=== PATIENT | male | born 1955 | race Caucasian/White ===

== ENCOUNTER 2020-12-20 14:42 | Outpatient (CLI) | payer MEDICARE ==
[2020-12-20 15:50] LABS: #Eosinphils 0.4 10x3/uL (0.0-0.5); #Monocytes 0.4 10x3/uL (0.0-1.1); %Eosinophils 8.9 % (0.0-6.0); %Lymphocytes 17.3 % (18.0-47.0); %Monocytes 9.4 % (0.0-10.0); Hemoglobin 12.5 g/dL (13.5-17.5); Mean Corpuscular HGB CONC 33.7 g/dL (32.0-36.0); Mean Corpuscular Hemoglobin 30.3 pg (27.0-33.0); Mean Platelet Volume 10.9 fl (7.4-10.4); Platelet Count 204 10x3/uL (150-450); RBC Distribution Width 12.6 % (11.5-14.5); Red Blood Cell (RBC) Count 4.12 10x6/uL (4.32-5.72); White Blood Cell (WBC) Count 4.2 10x3/uL (3.5-10.5)
[2020-12-20 15:53] LABS: #Neutrophils 2.6 10x3/uL (1.5-8.4); %Neutrophils 63.4 % (40.0-75.0)
[2020-12-21 02:14] LABS: SARS-CoV-2 PCR by NAA Not Detected (NotDetected)
== END 2020-12-20 14:43 | disposition home or self-care (01) ==
LOC: LABBT 14:42
PROVIDERS: ATTEND Orthopaedic Surgery Hand Surgery
DX: Z01.812 Encounter for preprocedural laboratory examination (principal); M72.0 Palmar fascial fibromatosis [Dupuytren]; Z20.822 Contact with and (suspected) exposure to COVID-19
CPT/HCPCS: 85025; U0003; U0005; 87635

== ENCOUNTER 2020-12-24 10:54 | Day surgery (SDC) | payer MEDICARE ==
[2020-12-21 10:09] VITALS: BMI 19.5
[2020-12-24] MEDS ORDERED: Collagenase Clostridium Hist. 0.9 MG VIAL IJ SCH (13:15)
[2020-12-24] MEDS ORDERED: Fentanyl 100 MCG/2 ML VIAL ONE (13:47)
[2020-12-24] MEDS ORDERED: Lidocaine 1% PF 5 ML VIAL ONE (14:10)
[2020-12-24] MEDS ORDERED: diphenhydrAMINE 50 MG/ML VIAL ONE (14:10)
[2020-12-24] MEDS ORDERED: PROPOFOL 200 MG/20 ML VIAL ONE (14:10)
[2020-12-24] MEDS ORDERED: Ondansetron PF 4 MG/2 ML Vial ONE (14:10)
[2020-12-24] MEDS ORDERED: Dexamethasone 20 MG/5 ML VIAL ONE (14:10)
[2020-12-24] MEDS ORDERED: ePHEDrine Sulfate 50 MG/10 ML VIAL ONE (14:10)
[2020-12-24] MEDS ORDERED: Ketorolac Tromethamine 30 MG/ML VIAL ONE (15:52)
== END 2020-12-24 16:08 | disposition home or self-care (01) ==
LOC: SDC 10:54
PROVIDERS: ATTEND Orthopaedic Surgery Hand Surgery
PROC: 3E013TZ Introduction of Destructive Agent into Subcutaneous Tissue, Percutaneous Approach (ICD-10-PCS; principal; 2020-12-24)
DX: M72.0 Palmar fascial fibromatosis [Dupuytren] (principal); K59.00 Constipation, unspecified; Z79.82 Long term (current) use of aspirin; Z79.899 Other long term (current) drug therapy; Z88.5 Allergy status to narcotic agent
CPT/HCPCS: 20527; J0775; J0690; J1100; J1200; J1885; J2405; J2704; J3010

== ENCOUNTER 2021-01-31 08:25 | Outpatient (CLI) | payer MEDICARE | END 2021-01-31 08:26 | disposition home or self-care (01) | LOC: CT 08:25 | PROVIDERS: ATTEND Urology | DX: N28.89 Other specified disorders of kidney and ureter (principal); N28.1 Cyst of kidney, acquired | CPT/HCPCS: 71260; 74170; 78306; 82565; A9503 ==

== ENCOUNTER 2021-04-23 08:29 | Outpatient (CLI) | payer MEDICARE ==
[2021-04-23] MEDS ORDERED: Iopamidol 370 76% 100 ML VIAL ONE (13:23)
== END 2021-04-23 08:30 | disposition home or self-care (01) ==
LOC: CT 08:29
PROVIDERS: ATTEND Urology
DX: C64.1 Malignant neoplasm of right kidney, except renal pelvis (principal); R06.02 Shortness of breath; R53.1 Weakness; R91.8 Other nonspecific abnormal finding of lung field; N28.1 Cyst of kidney, acquired; N28.89 Other specified disorders of kidney and ureter; K59.00 Constipation, unspecified; K83.9 Disease of biliary tract, unspecified; Z98.890 Other specified postprocedural states
CPT/HCPCS: 36415; 71260; 74178; 80053; 85025; Q9967

== ENCOUNTER 2021-05-08 07:30 | Outpatient (CLI) | payer MEDICARE ==
[2021-05-08] MEDS ORDERED: Magnevist 469MG/ML 20 ML VIAL ONE (09:32)
== END 2021-05-08 07:31 | disposition home or self-care (01) ==
LOC: BICMRI 07:30
PROVIDERS: ATTEND Physician Assistant Medical
DX: K83.8 Other specified diseases of biliary tract (principal); R85.89 Other abnormal findings in specimens from digestive organs and abdominal cavity; R63.0 Anorexia; R19.7 Diarrhea, unspecified; N28.9 Disorder of kidney and ureter, unspecified
CPT/HCPCS: 74183; A9579

== ENCOUNTER 2021-06-26 10:43 | Outpatient (CLI) | payer MEDICARE ==
[2021-06-26 11:23] LABS: #Basophils 0.1 10x3/uL (0.0-0.2); #Eosinphils 0.4 10x3/uL (0.0-0.5); #Monocytes 0.6 10x3/uL (0.0-1.1); #Neutrophils 2.8 10x3/uL (1.5-8.4); %Lymphocytes 24.3 % (18.0-47.0); %Monocytes 11.4 % (0.0-10.0); %Neutrophils 55.9 % (40.0-75.0); Hemoglobin 13.1 g/dL (13.5-17.5); Mean Corpuscular HGB CONC 33.6 g/dL (32.0-36.0); Mean Corpuscular Hemoglobin 29.7 pg (27.0-33.0); Mean Corpuscular Volume 88.4 fl (81.2-95.1); Platelet Count 218 10x3/uL (150-450); RBC Distribution Width 13.4 % (11.5-14.5); Red Blood Cell (RBC) Count 4.41 10x6/uL (4.32-5.72)
[2021-06-26 11:47] LABS: ALT (SGPT) 14 U/L (8-55); AST (SGOT) 16 U/L (5-34); Albumin 4.3 g/dL (3.4-4.8); Alkaline Phosphatase 112 U/L (40-110); Anion Gap 14 mmol/L (10-20); BUN (Urea Nitrogen) 13 mg/dL (8.4-25.7); Bilirubin, Total 0.8 mg/dL (0.2-1.2); Calc. Creatinine Clearance 0 mL/min (70-130); Calcium 9.8 mg/dL (7.8-10.44); Carbon Dioxide 24 mmol/L (23-31); Chloride 108 mmol/L (98-107); Globulin 2.2 g/dL (2.4-3.5); Glucose 109 mg/dL (80-115); Protein, Total 6.5 g/dL (5.8-8.1); Sodium 142 mmol/L (136-145)
[2021-06-26 14:20] LABS: Hemoglobin A1c 4.8 % (4.0-6.0)
[2021-06-26 23:48] LABS: SARS-CoV-2 PCR by NAA Not Detected (NotDetected)
== END 2021-06-26 10:44 | disposition home or self-care (01) ==
LOC: LABBT 10:43
PROVIDERS: ATTEND Surgery
DX: Z01.818 Encounter for other preprocedural examination (principal); D12.8 Benign neoplasm of rectum; Z20.822 Contact with and (suspected) exposure to COVID-19
CPT/HCPCS: 80053; 82378; 83036; 85025; U0003; U0005; 93005; 93010

== ENCOUNTER 2021-06-26 10:45 | Inpatient (IN) | payer MEDICARE ==
[2021-07-01] MEDS ORDERED: Scopolamine 1.5 mg/72 hour Patch ONE (10:11)
[2021-07-01] MEDS ORDERED: Midazolam HCl 2 mg/2 ml Vial ONE (10:11)
[2021-07-01] MEDS ORDERED: cefOXitin Sodium/Dextrose 2 GM/50 ML BAG ONE (10:16)
[2021-07-01] MEDS ORDERED: HYDROmorphone 2 MG/ML VIAL ONE (11:27)
[2021-07-01] MEDS ORDERED: Fentanyl 100 MCG/2 ML VIAL ONE ×3 (11:27→14:21)
[2021-07-01] MEDS ORDERED: Promethazine HCl 25 MG/ML VIAL ONE (11:28)
[2021-07-01] MEDS ORDERED: SUGAMMADEX SODIUM 200 MG/2 ML VIAL ONE (11:28)
[2021-07-01] MEDS ORDERED: Glycopyrrolate 0.2 MG/ML 5 ML SYRINGE ONE (11:29)
[2021-07-01] MEDS ORDERED: PHENYLEPHRINE-NS 100 MCG/ML 10 ML SYRINGE ONE (11:29)
[2021-07-01] MEDS ORDERED: Ondansetron PF 4 MG/2 ML Vial ONE (11:29)
[2021-07-01] MEDS ORDERED: Rocuronium Bromide 10 MG/ML (10ML VIAL) ONE (11:29)
[2021-07-01] MEDS ORDERED: ePHEDrine 50 MG/ML VIAL ONE (11:29)
[2021-07-01] MEDS ORDERED: PROPOFOL 200 MG/20 ML VIAL ONE (11:29)
[2021-07-01] MEDS ORDERED: Lidocaine 2% PF 5 ML VIAL ONE (11:29)
[2021-07-01] MEDS ORDERED: Dexamethasone 20 MG/5 ML VIAL ONE (11:29)
[2021-07-01] MEDS ORDERED: Bupivacaine 0.25% HCL 30 ML VIAL ONE (12:16)
[2021-07-01] MEDS ORDERED: Lidocaine 1% w/Epinephrine 1:100K 20 ML VIAL ONE (12:16)
[2021-07-01] MEDS ORDERED: hydrALAZINE 20 MG/ML VIAL SLOW IVP PRN (13:26)
[2021-07-01] MEDS ORDERED: Ondansetron PF 4 MG/2 ML Vial IVP PRN ×2 (13:26→14:45)
[2021-07-01] MEDS ORDERED: Promethazine HCl 25 MG/ML VIAL IM PRN ×2 (13:26→14:45)
[2021-07-01] MEDS ORDERED: HYDROmorphone 0.5 MG/0.5 ML SYRINGE ONE ×2 (13:43→14:10)
[2021-07-01] MEDS ORDERED: Non-Formulary Medication 1 EACH PO PRN ×2 (14:32→14:40)
[2021-07-01] MEDS ORDERED: Promethazine HCl 25 MG/ML VIAL IM/IV PRN ×2 (14:45)
[2021-07-01] MEDS ORDERED: diphenhydrAMINE 50 MG/ML VIAL IM/IV PRN (14:45)
[2021-07-01] MEDS ORDERED: Fentanyl CADD 100 ML IVPB SCH (14:45)
[2021-07-01] MEDS ORDERED: Zolpidem Tartrate 5 MG TAB PO PRN (14:45)
[2021-07-01] MEDS ORDERED: Ondansetron HCl/PF 4 MG/2 ML Vial IVP PRN ×2 (14:45)
[2021-07-01] MEDS ORDERED: diphenhydrAMINE 25 MG CAP PO PRN (14:45)
[2021-07-01] MEDS ORDERED: Naloxone HCl 0.4 mg/ml Vial IV PRN (14:45)
[2021-07-01] MEDS ORDERED: HYDROmorphone 2 MG/ML VIAL SLOW IVP PRN ×2 (14:45)
[2021-07-01] MEDS: Sodium Chloride 0.9% 1,000 ML IV SCH (16:11)
[2021-07-01] MEDS: cefOXitin Sodium/Dextrose,Iso 2 GM in Premix Bag 1 BAG IVPB SCH (17:16)
[2021-07-01] MEDS ORDERED: FLU VACC QS2021-22(65YR UP)/PF 240 MCG/0.7 ML SYRINGE IM ONE (18:15)
[2021-07-01] MEDS: Famotidine/PF 20 mg/2ml Vial SLOW IVP SCH (20:36)
[2021-07-01] MEDS: Famotidine 20 MG TAB PO SCH (22:30)
[2021-07-02] MEDS: cefOXitin Sodium/Dextrose,Iso 2 GM in Premix Bag 1 BAG IVPB SCH (01:50)
[2021-07-02 06:39] LABS: #Lymphocytes 0.6 thou/uL (1.20-3.40); #Monocytes 0.9 thou/uL (0.11-0.59); #Neutrophils 8.3 thou/uL (1.40-6.50); %Eosinophils 0.2 % (0.0-10.0); %Lymphocytes 6.1 % (21.0-51.0); %Monocytes 8.8 % (0.0-10.0); %Neutrophils 84.9 % (42.0-75.0); Hemoglobin 12.3 g/dL (14.0-18.0); Mean Corpuscular HGB CONC 33.5 g/dL (32.0-36.0); Mean Corpuscular Hemoglobin 30.2 pg (27.0-31.0); Mean Corpuscular Volume 90.2 fL (78.0-98.0); Mean Platelet Volume 7.7 fL (7.4-10.4); Platelet Count 172 thou/uL (130-400); RBC Distribution Width 12.6 % (11.5-14.5); Red Blood Cell (RBC) Count 4.08 mill/uL (4.70-6.10); White Blood Cell (WBC) Count 9.8 thou/uL (4.8-10.8)
[2021-07-02 07:02] LABS: Anion Gap 12 mmol/L (10-20); BUN (Urea Nitrogen) 9 mg/dL (8.4-25.7); Calc. Creatinine Clearance 0 mL/min (70-130); Calcium 9.8 mg/dL (7.8-10.44); Carbon Dioxide 25 mmol/L (23-31); Chloride 108 mmol/L (98-107); Glucose 122 mg/dL (80-115); Potassium 4.2 mmol/L (3.5-5.1); Sodium 141 mmol/L (136-145)
[2021-07-02] MEDS: Sodium Chloride 0.9% 1,000 ML IV SCH ×3 (08:36→14:46)
[2021-07-02] MEDS: Famotidine/PF 20 mg/2ml Vial SLOW IVP SCH ×2 (08:36→21:30)
[2021-07-02] MEDS: Enoxaparin Sodium 30 MG/0.3 ML SYRINGE SC SCH (08:36)
[2021-07-02 11:04] VITALS: BMI 18.1
[2021-07-02] MEDS: Famotidine 20 MG TAB PO SCH ×2 (14:46→21:30)
[2021-07-03] MEDS: Famotidine/PF 20 mg/2ml Vial SLOW IVP SCH ×2 (09:37→19:39)
[2021-07-03] MEDS: Famotidine 20 MG TAB PO SCH ×2 (09:37→19:36)
[2021-07-03] MEDS: Enoxaparin Sodium 30 MG/0.3 ML SYRINGE SC SCH (10:18)
[2021-07-03] MEDS: Sodium Chloride 0.9% 1,000 ML IV SCH ×5 (10:23→19:38)
[2021-07-04] MEDS: Sodium Chloride 0.9% 1,000 ML IV SCH (09:31)
[2021-07-04] MEDS: Famotidine 20 MG TAB PO SCH (09:31)
[2021-07-04] MEDS: Enoxaparin Sodium 30 MG/0.3 ML SYRINGE SC SCH (09:32)
[2021-07-04] MEDS: Famotidine/PF 20 mg/2ml Vial SLOW IVP SCH (09:34)
[2021-07-04 11:31] VITALS: BP 145/81; TEMP 98.3
== END 2021-07-04 13:55 | disposition home or self-care (01) | DRG 331 ==
LOC: SURG A 07-01 08:46 → EDSTATUS 07-01 10:45 → SURG B 07-01 15:30
PROVIDERS: ADMIT Surgery; ATTEND Surgery
PROC: 0DBP0ZZ Excision of Rectum, Open Approach (ICD-10-PCS; principal; 2021-07-01)
PROC: 0DBN0ZZ Excision of Sigmoid Colon, Open Approach (ICD-10-PCS; 2021-07-01)
PROC: 0DJD8ZZ Inspection of Lower Intestinal Tract, Via Natural or Artificial Opening Endoscopic (ICD-10-PCS; 2021-07-01)
DX: C20 Malignant neoplasm of rectum (principal); N40.0 Benign prostatic hyperplasia without lower urinary tract symptoms; Z28.21 Immunization not carried out because of patient refusal; Z90.49 Acquired absence of other specified parts of digestive tract; Z98.42 Cataract extraction status, left eye; Z98.41 Cataract extraction status, right eye; Z90.5 Acquired absence of kidney; Z79.899 Other long term (current) drug therapy
CPT/HCPCS: 36415; 36416; 80048; 85025; 88309; J0694; J1100; J1170; J1650; J2001; J2250; J2405; J2550; J2704; J3010; J3490; J7050; S0020; S0028

== ENCOUNTER 2021-09-04 08:01 | Outpatient (CLI) | payer MEDICARE | END 2021-09-04 08:02 | disposition home or self-care (01) | LOC: CT 08:01 | PROVIDERS: ATTEND Urology | DX: C64.1 Malignant neoplasm of right kidney, except renal pelvis (principal); K83.8 Other specified diseases of biliary tract; Z90.5 Acquired absence of kidney | CPT/HCPCS: 74170 ==

== ENCOUNTER 2022-03-28 11:57 | Outpatient (CLI) | payer MEDICARE ==
[2022-03-28 13:23] LABS: Hemoglobin 14.7 g/dL (13.5-17.5); Mean Corpuscular HGB CONC 33.6 g/dL (32.0-36.0); Mean Corpuscular Hemoglobin 29.1 pg (27.0-33.0); Mean Corpuscular Volume 86.7 fl (81.2-95.1); Mean Platelet Volume 10.5 fl (7.4-10.4); Platelet Count 235 10x3/uL (150-450); RBC Distribution Width 12.9 % (11.5-14.5); Red Blood Cell (RBC) Count 5.05 10x6/uL (4.32-5.72); White Blood Cell (WBC) Count 5.2 10x3/uL (3.5-10.5)
[2022-03-28 13:30] LABS: Bilirubin Neg (Negative); Blood, Urine Negative (Negative); Clarity Slightly Cloudy (Clear); Glucose, Urine (Dipstick) Normal (Negative); Ketone, Urine Negative (Negative); Leukocyte Negative (Negative); Nitrite Negative (Negative); Protein, Urine (Dipstick) Negative (Neg-Trace); Urobilinogen Normal mg/dL (Less than 2)
[2022-03-28 13:39] LABS: PTT 25.3 sec (22.0-33.0); Prothrombin Time 10.4 sec (9.5-12.1)
[2022-03-28 13:42] LABS: RBC/HPF 0-3 HPF (0-3); Squamous Epithelial 0-3 HPF (0-3); WBC/HPF 0-3 HPF (0-3)
[2022-03-28 13:43] LABS: Bacteria/HPF None Seen HPF (None Seen)
[2022-03-28 13:46] LABS: Anion Gap 15 mmol/L (10-20); BUN (Urea Nitrogen) 16 mg/dL (8.4-25.7); Calc. Creatinine Clearance 0 mL/min (70-130); Calcium 10.1 mg/dL (7.8-10.44); Carbon Dioxide 27 mmol/L (23-31); Chloride 102 mmol/L (98-107); Estimated GFR 44; Glucose 95 mg/dL (80-115); Potassium 4.5 mmol/L (3.5-5.1); Sodium 139 mmol/L (136-145)
== END 2022-03-28 11:58 | disposition home or self-care (01) ==
LOC: LABBT 11:57
PROVIDERS: ATTEND Urology
DX: Z01.818 Encounter for other preprocedural examination (principal); C64.1 Malignant neoplasm of right kidney, except renal pelvis; M72.0 Palmar fascial fibromatosis [Dupuytren]; N28.1 Cyst of kidney, acquired; N40.1 Benign prostatic hyperplasia with lower urinary tract symptoms; R35.0 Frequency of micturition; R63.4 Abnormal weight loss; R94.31 Abnormal electrocardiogram [ECG] [EKG]; K59.00 Constipation, unspecified; N52.9 Male erectile dysfunction, unspecified; Z90.5 Acquired absence of kidney; Z20.822 Contact with and (suspected) exposure to COVID-19
CPT/HCPCS: 80048; 81001; 85027; 85610; 85730; 87086; 87811; 93005; 93010

== ENCOUNTER 2022-04-02 05:33 | Day surgery (SDC) | payer MEDICARE ==
[2022-03-31 12:17] VITALS: BMI 20.9
[2022-04-02] MEDS ORDERED: Levofloxacin 500 mg/D5W 100 ml Premix Bag ONE (06:55)
[2022-04-02] MEDS ORDERED: fentaNYL Citrate/PF 100 MCG/2 ML SYRINGE ONE (06:57)
[2022-04-02] MEDS ORDERED: Ondansetron PF 4 MG/2 ML Vial ONE (07:36)
[2022-04-02] MEDS ORDERED: B & O ONE (07:38)
[2022-04-02] MEDS ORDERED: Phenazopyridine HCl 100 MG TAB ONE (08:30)
[2022-04-02] MEDS ORDERED: Tamsulosin HCl 0.4 MG CAP ONE (10:22)
[2022-04-02] MEDS ORDERED: traMADol HCl 50 MG TAB ONE (13:37)
== END 2022-04-02 13:55 | disposition home or self-care (01) ==
LOC: SDC 05:33
PROVIDERS: ATTEND Urology
PROC: 0T7D8DZ Dilation of Urethra with Intraluminal Device, Via Natural or Artificial Opening Endoscopic (ICD-10-PCS; principal; 2022-04-02)
DX: N40.1 Benign prostatic hyperplasia with lower urinary tract symptoms (principal); R35.0 Frequency of micturition; N13.8 Other obstructive and reflux uropathy; N32.89 Other specified disorders of bladder; E03.9 Hypothyroidism, unspecified; M72.0 Palmar fascial fibromatosis [Dupuytren]; N28.1 Cyst of kidney, acquired; K59.00 Constipation, unspecified; N52.9 Male erectile dysfunction, unspecified; Z79.82 Long term (current) use of aspirin; Z79.899 Other long term (current) drug therapy; Z88.5 Allergy status to narcotic agent; Z90.49 Acquired absence of other specified parts of digestive tract; Z90.5 Acquired absence of kidney
CPT/HCPCS: C9740; L8699; J1956; J2405

== ENCOUNTER 2022-05-30 12:23 | Outpatient (CLI) | payer MEDICARE | END 2022-05-30 12:24 | disposition home or self-care (01) | LOC: ULT 12:23 | PROVIDERS: ATTEND Urology | DX: N28.1 Cyst of kidney, acquired (principal); N28.89 Other specified disorders of kidney and ureter | CPT/HCPCS: 76770 ==

== ENCOUNTER 2023-01-02 14:34 | Outpatient (CLI) | payer MEDICARE, OTHER | END 2023-01-02 14:35 | disposition home or self-care (01) | LOC: BICRAD 14:34 | PROVIDERS: ATTEND Urology | DX: C64.1 Malignant neoplasm of right kidney, except renal pelvis (principal); N28.1 Cyst of kidney, acquired; Z90.5 Acquired absence of kidney; Z12.5 Encounter for screening for malignant neoplasm of prostate; N40.1 Benign prostatic hyperplasia with lower urinary tract symptoms; R35.0 Frequency of micturition; N18.9 Chronic kidney disease, unspecified; N52.9 Male erectile dysfunction, unspecified | CPT/HCPCS: 71046; 80048; 81001; G0103; 36415 ==

== ENCOUNTER 2024-03-08 10:24 | Outpatient (CLI) | payer MEDICARE, OTHER ==
[2024-03-08] MEDS ORDERED: Iopamidol 370 76% 100 ML VIAL ONE (13:06)
== END 2024-03-08 10:25 | disposition home or self-care (01) ==
LOC: BICCT 10:24
PROVIDERS: ATTEND Urology
DX: C64.1 Malignant neoplasm of right kidney, except renal pelvis (principal); N28.1 Cyst of kidney, acquired; K59.00 Constipation, unspecified; N28.89 Other specified disorders of kidney and ureter; Z90.5 Acquired absence of kidney
CPT/HCPCS: 74170; 82565; Q9967

== ENCOUNTER 2025-07-07 08:25 | Outpatient (CLI) | payer MEDICARE, OTHER ==
[2025-07-07] MEDS ORDERED: GASTROGRAFIN 30 ML BOT ONE (11:50)
[2025-07-07] MEDS ORDERED: Iopamidol 370 76% 100 ML VIAL ONE (11:50)
== END 2025-07-07 08:26 | disposition home or self-care (01) ==
LOC: CT 08:25
PROVIDERS: ATTEND Internal Medicine Hematology & Oncology
DX: C18.7 Malignant neoplasm of sigmoid colon (principal); C64.1 Malignant neoplasm of right kidney, except renal pelvis; R97.8 Other abnormal tumor markers; R16.0 Hepatomegaly, not elsewhere classified; K59.00 Constipation, unspecified; Z98.890 Other specified postprocedural states; R93.421 Abnormal radiologic findings on diagnostic imaging of right kidney; R93.422 Abnormal radiologic findings on diagnostic imaging of left kidney
CPT/HCPCS: 71260; 74177; Q9963; Q9967